=== PATIENT | male | born 1960 | race Two or more races ===

== ENCOUNTER 2017-01-04 13:25 | Day surgery (SDC) | payer OTHER ==
[~2017-01-04] VITALS: Ht 172.7 cm; Wt 72.9 kg
[~2017-01-04 13:25] MED LIST: QUIN20TA23; ZOC20
[2017-01-04 14:30] VITALS: Ht 172.7 cm; Wt 72.9 kg
[2017-01-04] MEDS ORDERED: OMEP10CA4 PO (14:37)
[2017-01-04] MEDS ORDERED: EMPA10TA PO (14:37)
[2017-01-04 15:03] VITALS: BP 121/73; PULSE 93; RESP 24
[2017-01-04] MEDS ORDERED: LIDOCAINE 4% SOLUTION 50 ML BTL ONE (15:06)
[2017-01-04] MEDS ORDERED: MIDAZOLAM 1 MG/ML 2 ML INJ ONE ×2 (15:37)
[2017-01-04] MEDS ORDERED: FENTAnyl 50 MCG/ML VIAL ONE (15:37)
--- NOTE | 2017-01-05 06:32 | GILP ---
DATE OF PROCEDURE: PREOPERATIVE DIAGNOSES: 1. Abdominal pain. 2. Epigastric pain. 3. History of gastrointestinal bleed. PROCEDURE DONE: Esophagogastroduodenoscopy and biopsy. POSTOPERATIVE DIAGNOSES: 1. Large paraesophageal hernia. 2. Severe diffuse gastritis. DESCRIPTION OF PROCEDURE: The patient was put in left lateral decubitus after obtaining informed co nsent. Posterior pharynx anesthetized with 4% Xylocaine and I gave him Versed 3 mg and fentanyl 50 mcg. I advanced an Olympus video upper endoscope into the esophagus, stomach and duodenum. It demo nstrated a large paraesophageal hernia at 35 cm onward and this was also confirmed by antegrade and retrograde, and also retroflexion in the fundus and diffuse gastritis was noted in the entire stomac h, so random biopsies were done to rule out H. pylori. Duodenum is unremarkable up to second part. Scope was withdrawn. The patient had no complication. Plan will be to request him to have an uppe r GI x-rays, esophageal manometric studies and he may need a surgical opinion for paraesophageal her guzman repair and he will be on PPI, await for biopsy report. If any H. pylori, we will treat so. Dictated By: RITA HAGER Conf#: [id number] DID#: [id number] CC: Jeffy Castro;*End*
== END 2017-01-04 15:44 | disposition home or self-care (01) ==
LOC: GIL 13:25
PROVIDERS: ATTEND Internal Medicine
DX: K29.50 Unspecified chronic gastritis without bleeding (principal); K44.9 Diaphragmatic hernia without obstruction or gangrene; E11.9 Type 2 diabetes mellitus without complications
CPT/HCPCS: 43239; 82962; 88305; 88312; J2250; J3010; Z7610